=== PATIENT | female | born 2000 | race American Indian/Alaskan Native ===

== ENCOUNTER 2021-02-14 19:34 | Emergency (ER) | payer OTHER ==
[2021-02-14 21:48] VITALS: BP 133/74
--- NOTE | 2021-02-15 00:03 | Emergency Department Report ---
ED General Adult HPI - General Chief complaint: Pain General Stated complaint: LUPUS/LIGHT HEADED/LOSS OF APPETITE Time Seen by Provider: 02/14/21 23:57 Source: patient Mode of arrival: Ambulatory Limitations: No Limitations - History of Present Illness Initial comments: Patient is a 20-year-old female presents emergency room with complaints of a lupus flare. She states that her rash from her lupus has been worsening over the last 2 to 3 months. She states that she was previously on Plaquenil 3 months ago but took herself off of it due to unwanted side effects. 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 She states that she recently obtained insurance and is planning to find doctors for her to follow-up with. She states that she also intermittently gets joint pain in her knees and her ankles. She denies any fever, vomiting, diarrhea, dysuria, urinary symptoms, abdominal pain, shortness of breath, chest pain, cough. She denies any other past medical history. No allergies to medications. She states that her last menstrual cycle was last month and denies any possibility of . She denies any recent antibiotics. She denies any new soaps, lotions, detergents, medications, anything new she can think of. - Related Data Previous Rx's Medication Instructions Recorded Last Taken Type Hydrocortisone 1% [Hydrocortisone 1 applicatio TP TID #1 tube 02/15/21 Unknown Rx 1% CREAM] Naproxen 375 mg PO BID PRN #20 tablet. 02/15/21 Unknown Rx Prednisone [predniSONE 10 mg 10 mg PO .TAPER #1 tab.ds.pk 02/15/21 Unknown Rx (6-Day Pack, 21 Tabs)] ED Review of Systems ROS: Stated complaint: LUPUS/LIGHT HEADED/LOSS OF APPETITE Other details as noted in HPI Comment: All other systems reviewed and negative ED Past Medical Hx - Past Medical History Previous Medical History?: Yes Additional medical history: lupus - Medications Home Medications: Home Medications Medication Instructions Recorded Confirmed Last Taken Type Hydrocortisone 1% [Hydrocortisone 1 applicatio TP TID #1 tube 02/15/21 Unknown Rx 1% CREAM] Naproxen 375 mg PO BID PRN #20 tablet. 02/15/21 Unknown Rx Prednisone [predniSONE 10 mg 10 mg PO .TAPER #1 tab.ds.pk 02/15/21 Unknown Rx (6-Day Pack, 21 Tabs)] ED Physical Exam - General Limitations: No Limitations General appearance: alert, in no apparent distress - Head Head exam: Present: atraumatic, normocephalic - Eye Eye exam: Present: normal appearance - ENT ENT exam: Present: mucous membranes moist - Respiratory Respiratory exam: Present: normal lung sounds bilaterally. Absent: respiratory distress, wheezes, rales, rhonchi, stridor, chest wall tenderness, accessory muscle use, decreased breath sounds, prolonged expiratory - Cardiovascular Cardiovascular Exam: Present: regular rate, normal rhythm, normal heart sounds. Absent: systolic murmur, diastolic murmur, rubs, gallop - Extremities Exam Extremities exam: Present: normal inspection, full ROM, normal capillary refill. Absent: tenderness, pedal edema, joint swelling, calf tenderness - Neurological Exam Neurological exam: Present: alert, oriented X3 - Psychiatric Psychiatric exam: Present: normal affect, normal mood - Skin Skin exam: Present: warm, dry, other (erythematous plaques and papules with scaling present to the upper eyelids, lower eyelids and lips) ED Course Vital Signs 02/14/21 21:46 Temperature 99.0 F Pulse Rate 78 Respiratory 18 Rate Blood Pressure 133/74 [Left] O2 Sat by Pulse 100 Oximetry ED Medical Decision Making - Medical Decision Making Patient is a 20-year-old female presents emergency room with complaints of a lupus flare. She states that her rash from her lupus has been worsening over the last 2 to 3 months. She states that she was previously on Plaquenil 3 months ago but took herself off of it due to unwanted side effects. 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 She states that she recently obtained insurance and is planning to find doctors for her to follow-up with. She states that she also intermittently gets joint pain in her knees and her ankles. She denies any fever, vomiting, diarrhea, dysuria, urinary symptoms, abdominal pain, shortness of breath, chest pain, cough. She denies any other past medical history. No allergies to medications. She states that her last menstrual cycle was last month and denies any possibility of . She denies any recent antibiotics. She denies any new soaps, lotions, detergents, medications, anything new she can think of. Vitals are stable. Patient is afebrile, no tachycardia. On exam:erythematous plaques and papules with scaling present to the upper eyelids, lower eyelids and lips. Patient given prescription for hydrocortisone ointment, prednisone, naproxen. Advised patient Please use medication as prescribed. Please do not get medication in the eyes. Follow-up with a primary care doctor. Follow-up with a switch engineer. Return to emergency room for any new or worsening symptoms. Critical care attestation.: If time is entered above; I have spent that time in minutes in the direct care of this critically ill patient, excluding procedure time. ED Disposition Clinical Impression: Rash due to systemic lupus erythematosus (SLE) Disposition: TO HOME OR SELFCARE Is pt being admited?: No Does the pt Need Aspirin: No Condition: Stable Instructions: Systemic Lupus Erythematosus, Adult Additional Instructions: Please use medication as prescribed. Please do not get medication in the eyes. Follow-up with a primary care doctor. Follow-up with a switch engineer. Return to emergency room for any new or worsening symptoms. Prescriptions: Hydrocortisone 1% [Hydrocortisone 1% CREAM] 1 applicatio TP TID #1 tube Naproxen 375 mg PO BID PRN #20 tablet.dr GRANDE Reason: pain Prednisone [predniSONE 10 mg (6-Day Pack, 21 Tabs)] 10 mg PO .TAPER #1 tab.ds.pk Referrals: your, primary care doctor [Other] - 2-3 Days your, switch engineer [Other] - 2-3 Days Time of Disposition: 00:02 Print Language: ROMANSH
== END 2021-02-15 00:03 | disposition home or self-care (01) ==
LOC: ED 19:34
DX: M32.9 Systemic lupus erythematosus, unspecified (principal); Z79.899 Other long term (current) drug therapy
CPT/HCPCS: 99281

== ENCOUNTER 2021-04-18 03:38 | Emergency (ER) | payer OTHER ==
[2021-04-18 04:07] VITALS: BP 115/80
== END 2021-04-18 04:30 ==
LOC: ED 03:38
DX: M25.542 Pain in joints of left hand (principal); Z53.21 Procedure and treatment not carried out due to patient leaving prior to being seen by health care provider